=== PATIENT | female | born 1950 | race Caucasian/White ===

== ENCOUNTER → 2021-04-22 | Outpatient (CLI) | payer MEDICARE ==
[2021-04-22 03:47] LABS: BASOPHIL % 0.4 % (0.0-0.2); EOSINOPHIL # 0.1 10^3/uL (0.0-0.2); EOSINOPHIL % 1.6 % (0.0-5.0); LYMPHOCYTES # 0.74 10^3/uL1 (1.0-4.8); LYMPHOCYTES % 10.9 % (24.0-44.0); MONOCYTES # 0.6 10^3/uL (0.3-0.8); MONOCYTES % 9.1 % (5.0-12.0); NEUTROPHIL # 5.3 10^3/uL (1.8-7.7); PLATELET COUNT 245 10^3/uL (150-400); RED CELL DISTRIBUTION WIDTH 22.6 % (11.5-14.5)
[2021-04-22 04:01] LABS: CALCIUM 10.9 mg/dL (8.4-10.5); CARBON DIOXIDE 29.5 mmol/L (20.0-32)
== END | disposition home or self-care (01) ==
LOC: NPLAB 03:20
PROVIDERS: ATTEND Family Medicine
DX: I11.0 Hypertensive heart disease with heart failure (principal); I50.9 Heart failure, unspecified; L11.9 Acantholytic disorder, unspecified; E11.9 Type 2 diabetes mellitus without complications
CPT/HCPCS: 36415; 80053; 83036; 84443; 85025; 85610

== ENCOUNTER → 2021-05-13 | Outpatient (CLI) | payer MEDICARE | END | disposition home or self-care (01) | LOC: NPLAB 12:45 | PROVIDERS: ATTEND Family Medicine | DX: I11.0 Hypertensive heart disease with heart failure (principal); R60.9 Edema, unspecified; M62.81 Muscle weakness (generalized) | CPT/HCPCS: 83735; 84132 ==

== ENCOUNTER → 2021-06-08 | Outpatient (CLI) | payer MEDICARE ==
[2021-06-08 16:46] LABS: MEAN CORP HGB 28.9 pg (26-34); RED CELL DISTRIBUTION WIDTH 18.5 % (11.5-14.5)
[2021-06-08 16:54] LABS: BILIRUBIN,URINE NEGATIVE (NEGATIVE); UA COLOR YELLOW; UROBILINOGEN,URINE 0.2 E.U./dL (0.2)
[2021-06-08 17:04] LABS: CALCIUM 15.6 mg/dL (8.4-10.5)
== END | disposition home or self-care (01) ==
LOC: NPLAB 13:00
PROVIDERS: ATTEND Family Medicine
DX: I10 Essential (primary) hypertension (principal); R27.9 Unspecified lack of coordination; M62.81 Muscle weakness (generalized); R82.90 Unspecified abnormal findings in urine
CPT/HCPCS: 36415; 80053; 81001; 85027; 87077; 87086; 87186

== ENCOUNTER → 2021-06-09 | Outpatient (CLI) | payer MEDICARE ==
[2021-06-09 08:02] LABS: CARBON DIOXIDE 32.3 mmol/L (20.0-32)
[2021-06-09 08:12] LABS: CALCIUM 14.7 mg/dL (8.4-10.5)
== END | disposition home or self-care (01) ==
LOC: NPLAB 07:36
PROVIDERS: ATTEND Family Medicine
DX: I11.0 Hypertensive heart disease with heart failure (principal); G62.9 Polyneuropathy, unspecified; E03.9 Hypothyroidism, unspecified
CPT/HCPCS: 36415; 80053; 83970

== ENCOUNTER → 2021-06-11 | Outpatient (CLI) | payer MEDICARE ==
[2021-06-11 13:05] LABS: CARBON DIOXIDE 34.1 mmol/L (20.0-32)
[2021-06-11 13:57] LABS: CALCIUM 13.9 mg/dL (8.4-10.5)
== END | disposition home or self-care (01) ==
LOC: NPLAB 12:05
PROVIDERS: ATTEND Family Medicine
DX: I11.0 Hypertensive heart disease with heart failure (principal); E11.9 Type 2 diabetes mellitus without complications
CPT/HCPCS: 80053; 84100

== ENCOUNTER → 2021-06-14 | Outpatient (CLI) | payer MEDICARE, MEDICAID | END | disposition home or self-care (01) | LOC: NPLAB 17:07 | PROVIDERS: ATTEND Family Medicine | DX: I10 Essential (primary) hypertension (principal); M62.81 Muscle weakness (generalized); E55.9 Vitamin D deficiency, unspecified | CPT/HCPCS: 36415; 82306 ==